=== PATIENT | male | born 1930 | race Caucasian/White ===

== ENCOUNTER 2017-01-22 13:31 | Observation (INO) | payer OTHER ==
--- NOTE | 2017-01-22 14:21 | PDOC ---
History of Present Illness - General Chief Complaint: Shortness of Breath Stated Complaint: SOB Time Seen by Provider: 01/22/17 14:20 - History of Present Illness Initial Comments: 01/22/17 14:21 Mr. Grant is an 86 yo male with a significant past medical history of CHF with HTN who presents to the emergency department from PCP with a several day history of cough with productive sputum. Currently resting comfortably but here for r/o pneumonia vs. chf exacerbation. The patient denies chest pain, shortness of breath, headache and dizziness. Denies fever, chills, nausea, vomit, diarrhea and constipation. Denies dysuria, frequency, urgency and hematuria. Allergies: NKDA Past surgical history: Reports aorta repair surgery (unconfirmed) Past History - Past Medical History Allergies/Adverse Reactions: Allergies Allergy/AdvReac Type Severity Reaction Status Date / Time No Known Allergies Allergy Verified 11/10/12 12:22 Home Medications: Ambulatory Orders Albuterol Sulfate [Proair Hfa -] 1 - 2 inh PO QID PRN #1 inhaler 11/10/12 Atorvastatin Ca [Lipitor] 40 mg PO HS 11/10/12 Furosemide [Lasix -] 40 mg PO DAILY 11/10/12 Salmeterol/Fluticasone [Advair 250Mcg/50Mcg -] 1 inh IH BID #0 inh 11/10/12 Tamsulosin HCl 0.4 mg PO DAILY 11/10/12 Atorvastatin Ca [Lipitor -] 10 mg PO tablet 11/04/13 Anemia: No Asthma: No Cardiac Disorders: Yes (AAA) CVA: No COPD: Yes Diabetes: No HTN: Yes Hypercholesterolemia: No - Surgical History Cholecystectomy: Yes - Psycho/Social/Smoking Cessation Hx Suicidal Ideation: No Smoking Status: Yes Smoking History: Never smoked Number of Cigarettes Smoked Daily: 0 Information on smoking cessation initiated: No Hx Alcohol Use: No Drug/Substance Use Hx: No Substance Use Type: None Review of Systems - Review of Systems Comments:: GENERAL/CONSTITUTIONAL: No fever or chills. No weakness. HEAD, EYES, EARS, NOSE AND THROAT: No change in vision. No ear pain or discharge. No sore throat. CARDIOVASCULAR: No chest pain or shortness of breath RESPIRATORY: +Several day history of cough productive of sputum. No wheezing, or hemoptysis. GASTROINTESTINAL: No nausea, vomiting, diarrhea or constipation. GENITOURINARY: No dysuria, frequency, or change in urination. MUSCULOSKELETAL: No joint or muscle swelling or pain. No neck or back pain. SKIN: No rash NEUROLOGIC: No headache, vertigo, loss of consciousness, or change in strength/ sensation. ENDOCRINE: No increased thirst. No abnormal weight change HEMATOLOGIC/LYMPHATIC: No anemia, easy bleeding, or history of blood clots. ALLERGIC/IMMUNOLOGIC: No hives or skin allergy. *Physical Exam - Vital Signs Last Vital Signs Temp Pulse Resp BP Pulse Ox 97.7 F 64 22 150/95 96 01/22/17 13:41 01/22/17 13:41 01/22/17 13:41 01/22/17 13:41 01/22/17 13:41 - Physical Exam Comments: 01/22/17 14:20 GENERAL: Awake, alert, and fully oriented, in no acute distress HEAD: No signs of trauma, normocephalic, atraumatic EYES: PERRLA, EOMI, sclera anicteric, conjunctiva clear ENT: Auricles normal inspection, hearing grossly normal, nares patent, oropharynx clear without exudates. Moist mucosa NECK: Normal ROM, supple, no lymphadenopathy, JVD, or masses LUNGS: +Diffuse ronchi/crackles appreciated throughout lung srinivasan. No distress , speaks full sentences HEART: Regular rate and rhythm, normal S1 and S2, no murmurs, rubs or gallops, peripheral pulses normal and equal bilaterally. ABDOMEN: Soft, nontender, normoactive bowel sounds. No guarding, no rebound. No masses EXTREMITIES: Normal inspection, Normal range of motion, no edema. No clubbing or cyanosis. NEUROLOGICAL: Cranial nerves II through XII grossly intact. Normal speech, normal gait, no focal sensorimotor deficits SKIN: Warm, Dry, normal turgor, no rashes or lesions noted. ED Treatment Course - LABORATORY CBC & Chemistry Diagram: 01/22/17 15:15 01/22/17 15:15 Medical Decision Making - Medical Decision Making 01/22/17 16:53 Patient presents pneumonia vs. CHF exacerbation rule out. CXR negative for pathology, labs as below. Patient reports he has stopped taking his lasix for several months. Due to elevated BNP will admit for dieresis. Laboratory Results - last 24 hr 01/22/17 01/22/17 15:15 15:15 WBC 8.5 RBC 4.92 Hgb 15.9 Hct 45.7 MCV 92.9 MCH 32.2 MCHC 34.7 RDW 13.1 Plt Count 201 MPV 9.1 Neutrophils % 73.8 Lymphocytes % 10.5 D Monocytes % 13.2 H Eosinophils % 2.1 D Basophils % 0.4 Sodium 139 Potassium 4.2 Chloride 101 Carbon Dioxide 32 D Anion Gap 6 L BUN 11 Creatinine 1.1 D Creat Clearance w eGFR > 60 Random Glucose 93 D Calcium 8.8 Total Bilirubin 1.1 H AST 16 ALT 21 Alkaline Phosphatase 76 Creatine Kinase 102 Troponin I < 0.02 B-Natriuretic Peptide 925.63 H Total Protein 7.3 Albumin 3.2 L D *DC/Admit/Observation/Transfer Diagnosis at time of Disposition: Fluid overload Qualifiers: Hypervolemia type: unspecified Qualified Code(s): E87.70 - Fluid overload, unspecified - Discharge Dispostion Admit: Yes
[2017-01-22 15:41] LABS: BASOPHIL 0.4 % (0-2.0); EOSINOPHIL 2.1 % (0-4.5); MCH 32.2 pg (25.7-33.7); MCHC 34.7 g/dl (32.0-35.9); MEAN CELL VOLUME 92.9 fl (80-96); MEAN PLT VOLUME 9.1 fl (7.5-11.1); NEUTROPHILS 73.8 % (42.8-82.8); PLATELET COUNT 201 K/MM3 (134-434); RDW 13.1 % (11.9-15.9); WHITE BLOOD COUNT 8.5 K/mm3 (4.0-10.0)
[2017-01-22 16:29] LABS: ALBUMIN 3.2 g/dl (3.4-5.0); ANION GAP 6 (8-16); BILIRUBIN,TOTAL 1.1 mg/dL (0.2-1.0); CALCIUM 8.8 mg/dL (8.5-10.1); CO2 32 mmol/L (21-32); CREATININE 1.1 mg/dL (0.7-1.3); GLUCOSE,RANDOM 93 mg/dL (74-106); SGOT/AST 16 U/L (15-37); SGPT/ALT 21 U/L (12-78); TOT PROT 7.3 g/dl (6.4-8.2)
[2017-01-22 16:31] LABS: ALK PHOS 76 U/L (45-117); CPK 102 IU/L (39-308); TROPONIN I < 0.02 ng/ml (0.00-0.05)
[2017-01-22] MEDS ORDERED: FUROSEMIDE 40 MG/4 ML INJECTABLE VIAL IVPUSH ONE (16:40)
--- NOTE | 2017-01-22 16:52 | PDOC ---
Attending Attestation - Resident Resident Name: LetiJens - ED Attending Attestation I have performed the following: I have examined & evaluated the patient, The case was reviewed & discussed with the resident, I agree w/resident's findings & plan, Exceptions are as noted - HPI HPI: 01/22/17 16:47 86 M with h/o aortic aneurysm repair, HTN, presenting to ER with SOB, cough, and leg swelling. Pt states that his symptoms have progressively worsened over the past 2 weeks. He has had bilateral leg swelling for several months and was previously on lasix. However, he self-DC'ed the lasix because he did not want to have to go to the bathroom so much. Today, pt reports that his legs have become more swollen, and he also complains of SOB with LUCAS and dry cough. Pt denies CP. Denies F/C. Pt was seen in clinic today and referred to ER for r/o PNA vs CHF. - Physicial Exam PE: 01/22/17 16:52 "GENERAL: Awake, alert, and fully oriented, in no acute distress HEAD: No signs of trauma EYES: PERRLA, EOMI, sclera anicteric, conjunctiva clear ENT: Auricles normal inspection, hearing grossly normal, nares patent, oropharynx clear without exudates. Moist mucosa NECK: Normal ROM, supple, no lymphadenopathy, JVD, or masses LUNGS: diffuse rales + rhonchi, no wheezes HEART: Regular rate and rhythm, normal S1 and S2, no murmurs, rubs or gallops ABDOMEN: Soft, nontender, normoactive bowel sounds. No guarding, no rebound. No masses EXTREMITIES: 2+ PE BLE. No clubbing or cyanosis. No cords, erythema, or tenderness NEUROLOGICAL: Cranial nerves II through XII grossly intact. Normal speech, normal gait SKIN: Warm, Dry, normal turgor, no rashes or lesions noted. " - Medical Decision Making 01/22/17 16:53 86 M with SOB and leg swelling in the context of noncompliance with his lasix. Likely volume overload. Will also r/o infectious process. Pt with nonischemic EKG, making ACS less likely. No tachycardia, no hypoxia to suggest PE. Also subacute progression of symptoms makes this less likely. Pt with bilateral symmetric LE swelling, making DVT less likely. - Labs, trop, BNP - CXR - IV lasix
[2017-01-22] MEDS ORDERED: ALBUTEROL SO4 6.7 GM HFA INHALER IH PRN (16:58)
[2017-01-22] MEDS ORDERED: ACETAMINOPHEN 325 MG TABLET (FP) PO PRN (16:59)
[2017-01-22] MEDS ORDERED: FUROSEMIDE 40 MG/4 ML INJECTABLE VIAL ONE (17:19)
[2017-01-22] MEDS: ATORVASTATIN CA 10 MG TABLET (FP) PO SCH ×2 (22:06→22:08)
[2017-01-22] MEDS: BUDESONIDE/FORMETEROL FUMARATE 80/4.5 mcg INHALER IH SCH (22:31)
[2017-01-22 22:36] VITALS: BMI 34.4
[2017-01-23] MEDS ORDERED: TAMSULOSIN HCL 0.4 MG CAP.ER.24H (FP) PO SCH (08:30)
--- NOTE | 2017-01-23 09:25 | EKG ---
Test Reason : Blood Pressure : / mmHG Vent. Rate : 064 BPM Atrial Rate : 064 BPM P-R Int : 144 ms QRS Dur : 074 ms QT Int : 410 ms P-R-T Axes : 033 036 053 degrees QTc Int : 422 ms NORMAL SINUS RHYTHM CANNOT RULE OUT ANTERIOR INFARCT , AGE UNDETERMINED ABNORMAL ECG Confirmed by MD JENNIFER, RHONDA ([id number]) on 01/23/2017 9:24:48 AM Referred By: Confirmed By:RHONDA RODRIGUEZ MD
[2017-01-23] MEDS: BUDESONIDE/FORMETEROL FUMARATE 80/4.5 mcg INHALER IH SCH (09:52)
[2017-01-23] MEDS ORDERED: FUROSEMIDE 40 MG/4 ML INJECTABLE VIAL IVPB SCH (10:00)
[2017-01-23 11:14] VITALS: BP 148/84; PULSE 59; TEMP 97.6
--- NOTE | 2017-01-23 11:26 | HP ---
Admitting History and Physical - Smoking History Smoking history: Never smoked Aproximately how many cigarettes per day: 0 - Alcohol/Substance Use Hx Alcohol Use: No Home Medications - Allergies Allergies/Adverse Reactions: Allergies Allergy/AdvReac Type Severity Reaction Status Date / Time No Known Allergies Allergy Verified 11/10/12 12:22 - Home Medications Home Medications: Ambulatory Orders Albuterol Sulfate [Proair Hfa -] 1 - 2 inh PO QID PRN #1 inhaler 11/10/12 Atorvastatin Ca [Lipitor] 40 mg PO HS 11/10/12 Salmeterol/Fluticasone [Advair 250Mcg/50Mcg -] 1 inh IH BID #0 inh 11/10/12 Tamsulosin HCl 0.4 mg PO DAILY 11/10/12 Physical Examination Vital Signs: Vital Signs Temperature 97.6 F 01/23/17 08:00 Pulse Rate 59 L 01/23/17 08:00 Respiratory Rate 21 01/23/17 08:00 Blood Pressure 148/84 01/23/17 08:00 O2 Sat by Pulse Oximetry (%) 98 01/23/17 05:00
== END 2017-01-23 11:27 | disposition left against medical advice (07) ==
LOC: JER 13:31 → JERBED 16:56 → J8W 19:00
PROVIDERS: ADMIT Internal Medicine; ATTEND Internal Medicine
PROC: 3E033GC Introduction of Other Therapeutic Substance into Peripheral Vein, Percutaneous Approach (ICD-10-PCS; principal; 2017-01-22)
PROC: 3E0F7GC Introduction of Other Therapeutic Substance into Respiratory Tract, Via Natural or Artificial Opening (ICD-10-PCS; 2017-01-22)
DX: E87.70 Fluid overload, unspecified (principal); I10 Essential (primary) hypertension; I50.9 Heart failure, unspecified
CPT/HCPCS: 36415; 71020-TC; 80053; 83880; 84484; 85025; 93005; 93010; 99283-25; G0378